=== PATIENT | female | born 1980 | race Caucasian/White ===

== ENCOUNTER 2024-10-31 12:30 | Emergency (ER) | payer OTHER ==
[~2024-10-31] VITALS: Ht 167.6 cm; Wt 82.1 kg
[2024-10-31 12:32] VITALS: BP 141/86; TEMP 97.8; O2SAT 100
== END 2024-10-31 16:28 | disposition home or self-care (01) ==
LOC: M ED 12:30
DX: R19.00 Intra-abdominal and pelvic swelling, mass and lump, unspecified site (principal)